=== PATIENT | female | born 1955 | race Caucasian/White ===

== ENCOUNTER 2017-06-18 10:28 | Emergency (ER) | payer OTHER ==
[~2017-06-18] VITALS: Ht 160 cm; Wt 77.0 kg
[2017-06-18 10:31] VITALS: BP 171/91; PULSE 125; TEMP 36.8; O2SAT 96; Ht 160 cm; Wt 77.0 kg
[2017-06-18] MEDS ORDERED: XYLOCAINE 1%/SOD BICARB 20 ML VIAL INFIL ONE (11:00)
[2017-06-18] MEDS ORDERED: DIPHTHERIA/TETANUS/PERTUSSIS 0.5 ML SYR/VIAL IM. ONE (11:30)
--- NOTE | 2017-06-18 11:34 | EMERGENCY ROOM VISIT NOTE ---
ED Visit Note First contact with patient: 10:40 CHIEF COMPLAINT: Left Hand laceration HISTORY OF PRESENT ILLNESS: This 62-year-old female presents the ER with chief complaint of a laceration to her left hand. 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 She states this mainly on the side of the thumb. The patient is able to move her thumb without difficulty. That she denies any numbness and tingling. The patient is not on any blood thinners. The patient's tetanus is not up-to-date. The patient is right-hand dominant. REVIEW OF SYSTEMS: 6 system review was performed and was negative unless stated otherwise in history of present illness. PMH: The patient is healthy; tonsillectomy, cataract surgery SOCIAL HISTORY: Patient admits to tobacco use but denies any alcohol use. PHYSICAL EXAM: Vital Signs: Were reviewed Reviewed Nurse's notes. GENERAL: 62- year-old white female appears in no acute distress. MENTAL Status: Alert and oriented 3. LEFT HAND: There is a 5 cm long laceration on the lateral aspect of the thumb and first metacarpal The edges are gaping widely apart. There is no foreign material in the wound and it looks clean. There is no active bleeding. No deep structures such as tendons or nerves are seen in the base of the wound. Extension and flexion of the fingers is full and strong. Sensation to pain and light touch is intact. EMERGENCY DEPARTMENT COURSE: The patient was evaluated. Adacel was given. Wound Repair: Was performed by the PA student under my direct supervision. Complexity: Basic. Verbal consent was obtained after the risks and benefits were explained, including but not limited to bleeding, scarring, infection, pain, and bone/joint /nerve damage. The skin was prepped with betadine and a sterile field set. The wound was anesthetized with 4.8 ml of 1% buffered lidocaine. With direct pressure the bleeding subsided. Copious irrigation was performed using sterile saline. The wound was explored for foreign bodies and none found. Debridement was not performed. The wound edges were approximated using 5-0 Ethilon with 9 simple interrupted sutures. Hemostasis and excellent approximation was achieved. Antibacterial ointment and a sterile dressing applied. Detailed wound care instructions and signs and symptoms of infection reviewed with the patient. No complications and the patient tolerated the procedure well. DIAGNOSIS: 5 cm left Hand laceration DISCHARGE INSTRUCTIONS & TREATMENT: Keep wound clean and dry. No water on the area for 12-24 hrs then no soaking until sutures removed. Do not allow any crusting or dried blood to accumulate on sutures. If this occurs, use a 1:1 solution of hydrogen peroxide/water on a Q-tip to clean the wound. Use an antibiotic ointment for 3-4 days, then let wound dry. Suture removal in 8-10 days. Follow up sooner for any signs of infection (increasing redness, swelling , drainage). Ice and elevate for swelling and pain. Tylenol 650 mg every 6 hrs for pain. Current/Historical Medications No Active Prescriptions or Reported Meds Allergies Coded Allergies: Aminoglycosides (Unverified Allergy, Unknown, RASH AND SWELLING, 06/18/17) Penicillins (Unverified Allergy, Unknown, RASHES AND SWELLING, 06/18/17) Vital Signs Date Time Temp Pulse Resp B/P (MAP) Pulse Ox O2 Delivery O2 Flow Rate FiO2 06/18/17 10:31 36.8 125 18 171/91 96 Room Air Medications Administered Medications (Trade) Dose Ordered Sig/Chintan Route Start Time Stop Time Status Last Admin Dose Admin Diphtheria/ Pertussis/Tetanus Vacc (Adacel Inj) 0.5 ml ONCE ONCE IM. 06/18/17 11:30 06/18/17 11:31 DC 06/18/17 11:29 0.5 ML Departure Information Prescriptions No Active Prescriptions or Reported Meds Referrals No Doctor, Assigned (PCP) Patient Instructions [facility]
== END 2017-06-18 11:41 | disposition home or self-care (01) ==
LOC: C.EDB 10:32 → C.EDD 11:41
DX: S61.412A Laceration without foreign body of left hand, initial encounter (principal); W26.0XXA Contact with knife, initial encounter; F17.200 Nicotine dependence, unspecified, uncomplicated; Z23 Encounter for immunization; Y99.0 Civilian activity done for income or pay

== ENCOUNTER 2017-09-28 12:46 | Emergency (ER) | payer SELFPAY ==
[~2017-09-28] VITALS: Ht 160 cm; Wt 64.2 kg
[2017-09-28 13:03] VITALS: TEMP 36.9; Ht 160 cm; Wt 64.2 kg
[2017-09-28] MEDS ORDERED: SODIUM CHLORIDE 0.9% 1000ML 1,000 ML IV STA (13:55)
[2017-09-28] MEDS ORDERED: ONDANSETRON INJ 2 MG/ML 2 ML VIAL IV STA (13:55)
[2017-09-28] MEDS ORDERED: KETOROLAC TROMETHAMINE 30 MG/ML VIAL IV STA ×2 (13:55→21:34)
[2017-09-28] MEDS ORDERED: CEFEPIME IV 2,000 MG in DEXTROSE 5% 100ML 100 ML IV STA (13:55)
--- NOTE | 2017-09-28 14:08 | EMERGENCY ROOM VISIT NOTE ---
History Report prepared by Ab: Jordy Jhaveri Under the Supervision of: Dr. oCleman Arzate M.D. First contact with patient: 13:40 Chief Complaint: ABDOMINAL PAIN Stated Complaint: ABD PAIN History of Present Illness The patient is a 62 year old female who presents to the Emergency Room with complaints of intermittent left lower quadrant abdominal pain for the past three months which has become constant the past few weeks. She rates her discomfort as a 7/10 in severity, and she states that the pain is worsened with deep breathing and movement. Per the nursing notes, the patient was seen at her PCP this morning, and her white blood cell count was 26, her blood sugar was 339 , and she has lost 20 pounds in the last three months. The patient has no history of diabetes. The patient states that she has been able to move her bowels recently, though she did have some unusual diarrhea this morning. She notes that she has had some fevers recently. She denies any urinary symptoms, and she states that the pain is not worse with eating, though she has a lack of appetite. The patient has no history of abdominal surgeries or diverticulitis. She notes that she currently feels bloated and full. The patient is a smoker, though she has been smoking less than usual. She states that she is not currently on any medications. Source of History: patient Onset: the past three months becoming constant the past few weeks Position: abdomen (LLQ) Symptom Intensity: 7/10 Timing: constant Modifying Factors (Worsening): movement, other (deep breathing) Associated Symptoms: + fevers, + diarrhea, No urinary symptoms Note: Associated symptoms: lack of appetite, and she feels bloated and full Review of Systems See HPI for pertinent positives & negatives. A total of 10 systems reviewed and were otherwise negative. Past Medical & Surgical Surgical Problems: (1) History of cataract surgery (2) History of tonsillectomy Social History Smoking Status: Current Every Day Smoker Marital Status: Occupation Status: employed Current/Historical Medications Scheduled Acetaminophen (Tylenol), 1,000 MG PO UD Allergies Coded Allergies: Aminoglycosides (Unverified Allergy, Unknown, RASH AND SWELLING, 09/28/17) Penicillins (Unverified Allergy, Unknown, RASHES AND SWELLING, 09/28/17) Ciprofloxacin (Unverified Adverse Reaction, Intermediate, UN KNOWN, ) Physical Exam Vital Signs Date Time Temp Pulse Resp B/P (MAP) Pulse Ox O2 Delivery O2 Flow Rate FiO2 09/28/17 23:35 92 16 140/64 99 Room Air 09/28/17 20:45 91 18 121/64 93 Room Air 09/28/17 18:30 93 18 128/75 96 Room Air 09/28/17 18:00 106 09/28/17 16:43 111 18 130/73 96 Room Air 09/28/17 14:48 92 Nasal Cannula 3.0 09/28/17 14:45 123 20 149/84 87 Room Air 09/28/17 14:09 130 09/28/17 13:03 36.9 122 20 128/84 95 Room Air Physical Exam GENERAL: Patient is in no acute distress. HEENT: No acute trauma, normocephalic atraumatic, mucous membranes moist, no nasal congestion, no scleral icterus. NECK: No stridor, no adenopathy, no meningismus, trachea is midline. LUNGS: Clear to auscultation bilaterally, no wheeze, no rhonchi, breath sounds equal. HEART: Tachycardic with a somewhat irregular rhythm. No murmurs. ABDOMEN: Soft, tender along the entire left side, bowel sounds positive, no hernias, no peritonitis. EXTREMITIES: No cyanosis or edema, full range of motion of all the joints without pain or difficulty, no signs for acute trauma. NEUROLOGIC: Oriented x 3, no acute motor or sensory deficits, no focal weakness. SKIN: Some mottling to her knees noted. No rash, no jaundice, no diaphoresis. Medical Decision & Procedures ER Provider Diagnostic Interpretation: Radiology results as stated below per my review and radiologist interpretation: CHEST ONE VIEW PORTABLE CLINICAL HISTORY: Abdominal pain. COMPARISON STUDY: Chest radiograph September 20, 2017. FINDINGS: No lucency is identified under the hemidiaphragms to suggest pneumoperitoneum. No pneumothorax or pleural effusion is noted. There is mild nonspecific interstitial prominence. Cardiomediastinal silhouette is unremarkable. No consolidation is present. IMPRESSION: 1. No definite acute cardiopulmonary findings. 2. Age indeterminate mild interstitial thickening. Electronically signed by: Johny Landeros M.D. 09/28/2017 2:35 PM Dictated Date/Time: 09/28/2017 2:[address] ABD/PELVIS IV AND ORAL CONT CLINICAL HISTORY: Left lower quadrant abdominal pain COMPARISON STUDY: None. TECHNIQUE: Following the IV administration of 95 mL of Optiray-320, CT scan of the abdomen and pelvis was performed from the lung bases to the proximal femurs. Images are reviewed in the axial, sagittal, and coronal planes. IV contrast was administered without complication. A dose lowering technique was utilized adhering to the principles of ALARA. CT DOSE: 644.08 mGycm FINDINGS: Lower chest: There is a small left pleural effusion. There is septal thickening raising the possibility of mild pulmonary vascular congestion/fluid overload. Liver: The contrast-enhanced liver is normal in size, contour, and attenuation. There is no intrahepatic biliary ductal dilatation. The hepatic veins and portal veins are patent. Gallbladder: Unremarkable. Spleen: There are clustered splenic hypodensities involving the superior medial aspect of the spleen. These measure 32 mm in aggregate. Pancreas: No intrinsic pancreatic masses are visualized, although the pancreatic tail abuts a complex cystic left perinephric process Adrenal glands: The left adrenal gland is thickened and abuts a left perinephric complex cystic process Kidneys: There is a 7 mm right renal hypodensity, likely representing a cyst. There is a markedly complex multicystic left perinephric process measuring 9 cm. There is thickening of the adjacent fascia. There is adjacent left para-aortic adenopathy. The lesion is contiguous with a splenic hypodensity. There is subdiaphragmatic fluid. While a multiloculated abscess is favored, an underlying malignancy cannot be excluded. Bowel: There are no transition zone to indicate bowel obstruction. There is no evidence of acute appendicitis. There is colonic diverticulosis. There are no acute peridiverticular inflammatory changes. Peritoneum: No free air is visualized. There is no significant free pelvic fluid. Vasculature: The abdominal aorta is normal in course and caliber. Adenopathy: There is left para-aortic lymphadenopathy. There are mildly enlarged lymph nodes in the gastrohepatic ligament. Pelvic viscera: An IUD is visualized. There are right ovarian calcifications in a normal-sized ovary. There is a septated left adnexal mass measuring 8 cm. There are septal calcifications. 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 Skeletal structures: No destructive osseous lesions are seen. IMPRESSION: 1. Complex multi septated cystic left perinephric process measuring approximately 9 cm. This abuts the pancreatic tail, and is contiguous with a splenic hypodensity. There is associated subdiaphragmatic fluid. There is thickening of the adjacent fascia. There is associated adenopathy within the gastrohepatic ligament and left para-aortic region. While a multiloculated abscess is favored, an underlying malignancy cannot be excluded. This lesion is not amenable to percutaneous drainage, but a percutaneous aspiration could be obtained to determine whether this represents an abscess. 2. 8 cm cystic left adnexal mass with septal calcification. 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 3. No evidence of bowel obstruction. No evidence of free air 4. Diverticulosis. No evidence of acute diverticulitis. No evidence of acute appendicitis. Electronically signed by: Bruce Garcia M.D. 09/28/2017 5:23 PM Dictated Date/Time: 09/28/2017 5:08 PM Laboratory Results 09/28/17 14:09 Red Blood Count 4.91, Mean Corpuscular Volume 76.2, Mean Corpuscular Hemoglobin 26.3, Mean Corpuscular Hemoglobin Concent 34.5, Mean Platelet Volume 11.6, Neutrophils (%) (Auto) 88.8, Lymphocytes (%) (Auto) 8.0, Monocytes (%) (Auto) 2.5, Eosinophils (%) (Auto) 0.0, Basophils (%) (Auto) 0.1, Neutrophils # (Auto) 20.61, Lymphocytes # (Auto) 1.86, Monocytes # (Auto) 0.58, Eosinophils # (Auto) 0.01, Basophils # (Auto) 0.02 09/28/17 14:09 Test 09/28/17 14:09 09/28/17 18:15 White Blood Count 23.21 K/uL (4.8-10.8) Red Blood Count 4.91 M/uL (4.2-5.4) Hemoglobin 12.9 g/dL (12.0-16.0) Hematocrit 37.4 % (37-47) Mean Corpuscular Volume 76.2 fL (80-100) Mean Corpuscular Hemoglobin 26.3 pg (25-34) Mean Corpuscular Hemoglobin Concent 34.5 g/dl (32-36) Platelet Count 411 K/uL (130-400) Mean Platelet Volume 11.6 fL (7.4-10.4) Neutrophils (%) (Auto) 88.8 % Lymphocytes (%) (Auto) 8.0 % Monocytes (%) (Auto) 2.5 % Eosinophils (%) (Auto) 0.0 % Basophils (%) (Auto) 0.1 % Neutrophils # (Auto) 20.61 K/uL (1.4-6.5) Lymphocytes # (Auto) 1.86 K/uL (1.2-3.4) Monocytes # (Auto) 0.58 K/uL (0.11-0.59) Eosinophils # (Auto) 0.01 K/uL (0-0.5) Basophils # (Auto) 0.02 K/uL (0-0.2) RDW Standard Deviation 45.0 fL (36.4-46.3) RDW Coefficient of Variation 16.5 % (11.5-14.5) Immature Granulocyte % (Auto) 0.6 % Immature Granulocyte # (Auto) 0.13 K/uL (0.00-0.02) Nucleated RBC Absolute Count (auto) 0.02 K/uL (0-0) Nucleated Red Blood Cells % 0.1 % Toxic Granulation 1+ Microcytosis PRESENT Prothrombin Time 11.4 SECONDS (9.0-12.0) Prothromb Time International Ratio 1.1 (0.9-1.1) Activated Partial Thromboplast Time 27.5 SECONDS (21.0-31.0) Partial Thromboplastin Ratio 1.1 Anion Gap 7.0 mmol/L (3-11) Est Creatinine Clear Calc Drug Dose 67.4 ml/min Estimated GFR () 93.6 Estimated GFR (Non- 80.8 BUN/Creatinine Ratio 27.0 (10-20) Lactic Acid Level 1.8 mmol/L (0.4-2.0) Calcium Level 9.4 mg/dl (8.5-10.1) Magnesium Level 2.0 mg/dl (1.8-2.4) Total Bilirubin 1.1 mg/dl (0.2-1) Aspartate Amino Transf (AST/SGOT) 18 U/L (15-37) Alanine Aminotransferase (ALT/SGPT) 18 U/L (12-78) Alkaline Phosphatase 605 U/L (45-117) Troponin I 0.042 ng/ml (0-0.045) Total Protein 7.7 gm/dl (6.4-8.2) Albumin 1.7 gm/dl (3.4-5.0) Globulin 6.0 gm/dl (2.5-4.0) Albumin/Globulin Ratio 0.3 (0.9-2) Lipase 291 U/L (73-393) Thyroid Stimulating Hormone (TSH) 0.740 uIu/ml (0.300-4.500) Free Thyroxine 1.72 ng/dl (0.80-1.60) Urine Color DK YELLOW Urine Appearance TURBID (CLEAR) Urine pH 5.0 (4.5-7.5) Urine Specific [place] > 1.045 (1.000-1.030) Urine Protein 1+ (NEG) Urine Glucose (UA) NEG (NEG) Urine Ketones NEG (NEG) Urine Occult Blood 2+ (NEG) Urine Nitrite POS (NEG) Urine Bilirubin NEG (NEG) Urine Urobilinogen NEG (NEG) Urine Leukocyte Esterase LARGE (NEG) Urine WBC (Auto) /hpf (0-5) Urine RBC (Auto) /hpf (0-4) Urine Hyaline Casts (Auto) /lpf (0-5) Urine Epithelial Cells (Auto) /lpf (0-5) Urine Bacteria (Auto) (NEG) Urine RBC 5-10 /hpf (0-4) Urine WBC >30 /hpf (0-5) Urine Epithelial Cells >30 /lpf (0-5) Urine Amorphous Sediment PRESENT (NONE PRSENT) Urine Bacteria 3+ (NEG) Urine Yeast (Auto) (NONE PRSENT) Date/Time Source Procedure Growth Status 09/28/17 18:15 Urine , Clean Catch Urine Culture - Final Staphylococcus Aureus Staphylococcus Aureus#2 Complete Laboratory results reviewed by me. Medications Administered Medications (Trade) Dose Ordered Sig/Chintan Route Start Time Stop Time Status Last Admin Dose Admin Ondansetron HCl (Zofran Inj) 4 mg NOW STAT IV 09/28/17 13:55 09/28/17 14:00 DC 09/28/17 14:43 4 MG Ketorolac Tromethamine (Toradol Inj) 30 mg NOW STAT IV 09/28/17 13:55 09/28/17 14:00 DC 09/28/17 14:44 30 MG Cefepime HCl 2000 mg/Dextrose 112.5 ml @ 200 mls/hr ONE STAT IV 09/28/17 13:55 09/28/17 14:28 DC 09/28/17 15:06 200 MLS/HR Sodium Chloride 1,000 ml @ 999 mls/hr Q1H1M STAT IV 09/28/17 13:55 09/28/17 14:55 DC 09/28/17 14:43 999 MLS/HR Sodium Chloride 500 ml @ 999 mls/hr Q31M STAT IV 09/28/17 16:03 09/28/17 16:33 DC 09/28/17 16:43 999 MLS/HR Ketorolac Tromethamine (Toradol Inj) 10 mg NOW STAT IV 09/28/17 21:34 09/28/17 21:35 DC 09/28/17 21:40 10 MG ECG Per My Interpretation Indication: abdominal pain Rate (beats per minute): 125 Rhythm: sinus tachycardia Findings: PAC, T-wave inversion (Anterior and lateral), other (No ST elevation) ED Course 1340: The patient was evaluated in room B9. A complete history and physical exam was performed. 1355: Sodium Chloride 1000 ml @ 999 mls/hr IV, Cefepime HCl 2000mg/Dextrose 112.5ml @ 200mls/hr IV, Toradol 30mg IV 1603: Sodium Chloride 500 ml @ 999 mls/hr IV 1739: I discussed the patient's case with Dr. Rahman, [facility] General Surgery , and she is going to look at the CT scan, and she is going to call back. 1804: Dr. Rahman called back, and she said that she thinks that it is mostly cancer and mostly MATHEMATICAL SCIENCES PROFESSOR related. I spoke with OB collision worker, she recommended transferred to a tertiary care facility. I spoke with [facility] in [place], I talked with the hospitalist and surgeon collision worker, transfer is being arranged. Medical Decision Differential diagnoses include: diverticulitis or colitis, sepsis, dehydration, electrolyte imbalance, anemia, renal or liver failure, pancreatitis, UTI, and malignancy. There is a significant leukocytosis at 23,000, this is consistent with infection. No anemia. Renal panel testing shows a mild hyponatremia, glucose was elevated at over 200. No kidney failure. Alk phos was elevated at over 600. No coagulopathy. The patient appeared to be in a euthyroid state. Chest film did not show pneumonia, free air or pneumothorax. Lactic acid level was not elevated making severe sepsis less likely. Blood cultures are pending. Urinalysis did suggest infection. Urine culture is pending. Abdominal and pelvis CT shows what appears to be an abscess or possible malignancy coming from the left kidney. There is also an abnormality thought potentially a malignancy in the left adnexa. No involvement of the bowel. The patient received IV saline, she received a second bolus of IV saline. She was given IV cefepime as antibiotic coverage. She received IV Toradol for pain , IV Zofran for nausea. The patient's heart rate has improved, her blood pressure is adequate. She is not hypotensive. He is quite tender on the left side of the abdomen and I do think this physical exam finding is explained by the findings on CT. I discussed the case with general surgery and MATHEMATICAL SCIENCES PROFESSOR, they both recommended transfer to a tertiary care facility. I spoke with the hospitalist at [facility] in [place] as well as the surgeon in [place]. The patient was accepted in transfer. No additional interventions were thought needed prior to transfer. Orders for transfer were written. I talked to the patient and her friends/family. She is aware of the findings. At this point, her care will be assumed by Dr. Ramirez, she is awaiting an ambulance for the transfer to [facility]. Medication Reconcilliation Current Medication List: was personally reviewed by me Blood Pressure Screening Patient's blood pressure: Elevated blood pressure Referred to hospitalist Consults Time Called: 1736 Consulting Physician: Dr. Rahman, [facility] General Surgery Returned Call: [phone], [phone] I discussed the patient's case with Dr. Rahman, [facility] General [facility], and she is going to look at the CT scan, and she is going to call back. Dr. Ramhan called back, and she said that she thinks that it is mostly cancer and mostly MATHEMATICAL SCIENCES PROFESSOR related. Impression Primary Impression: Intra-abdominal abscess Additional Impressions: Leukocytosis Tachycardia Malignancy Scribe Attestation The scribe's documentation has been prepared under my direction and personally reviewed by me in its entirety. I confirm that the note above accurately reflects all work, treatment, procedures, and medical decision making performed by me. Departure Information Dispostion Transfer Acute Care Facility Referrals [facility] (PCP) Patient Instructions My [facility] Problem Qualifiers
[2017-09-28] MEDS ORDERED: OPTIRAY 320 IV PRN (14:15)
[2017-09-28] MEDS ORDERED: ACET-1256 PO (14:26)
[2017-09-28 14:29] LABS: HEMATOCRIT 37.4 % (37-47); HEMOGLOBIN 12.9 g/dL (12.0-16.0); MEAN CELL VOLUME 76.2 fL (80-100); MEAN CORPUSCULAR HEMOGLOBIN 26.3 pg (25-34); MEAN CORPUSCULAR HGB CONC 34.5 g/dl (32-36); MEAN PLATELET VOLUME 11.6 fL (7.4-10.4); NUCLEATED RED BLOOD CELL ABS 0.02 K/uL (0-0); PLATELET COUNT 411 K/uL (130-400); RED CELL DISTRIBUTION WIDTH CV 16.5 % (11.5-14.5); WHITE BLOOD COUNT 23.21 K/uL (4.8-10.8)
[2017-09-28 14:36] LABS: INR 1.1 (0.9-1.1); PTT PATIENT 27.5 SECONDS (21.0-31.0)
--- NOTE | 2017-09-28 14:36 | DIAGNOSTIC IMAGING REPORT ---
CHEST ONE VIEW PORTABLE CLINICAL HISTORY: Abdominal pain. COMPARISON STUDY: Chest radiograph September 20, 2017. FINDINGS: No lucency is identified under the hemidiaphragms to suggest pneumoperitoneum. No pneumothorax or pleural effusion is noted. There is mild nonspecific interstitial prominence. Cardiomediastinal silhouette is unremarkable. No consolidation is present. IMPRESSION: 1. No definite acute cardiopulmonary findings. 2. Age indeterminate mild interstitial thickening. Electronically signed by: Johny Landeros M.D. 09/28/2017 2:35 PM Dictated Date/Time: 09/28/2017 2:34 PM
[2017-09-28 14:48] VITALS: O2SAT 92
[2017-09-28 14:48] LABS: ALBUMIN 1.7 gm/dl (3.4-5.0); BASO % 0.1 %; BASO ABS # 0.02 K/uL (0-0.2); CALCIUM 9.4 mg/dl (8.5-10.1); CREATININE 0.79 mg/dl (0.60-1.20); EOS ABS # 0.01 K/uL (0-0.5); IG# 0.13 K/uL (0.00-0.02); LYMPH ABS # 1.86 K/uL (1.2-3.4); MONO % 2.5 %; MONO ABS # 0.58 K/uL (0.11-0.59); NEUT % 88.8 %; NEUT ABS # 20.61 K/uL (1.4-6.5); POTASSIUM 4.3 mmol/L (3.5-5.1)
[2017-09-28 15:03] LABS: TOTAL PROTEIN 7.7 gm/dl (6.4-8.2)
[2017-09-28] MEDS ORDERED: SODIUM CHLORIDE 0.9% 500ML 500 ML IV STA (16:03)
--- NOTE | 2017-09-28 17:25 | DIAGNOSTIC IMAGING REPORT ---
CT ABD/PELVIS IV AND ORAL CONT CLINICAL HISTORY: Left lower quadrant abdominal pain COMPARISON STUDY: None. TECHNIQUE: Following the IV administration of 95 mL of Optiray-320, CT scan of the abdomen and pelvis was performed from the lung bases to the proximal femurs. Images are reviewed in the axial, sagittal, and coronal planes. IV contrast was administered without complication. A dose lowering technique was utilized adhering to the principles of ALARA. CT DOSE: 644.08 mGycm FINDINGS: Lower chest: There is a small left pleural effusion. There is septal thickening raising the possibility of mild pulmonary vascular congestion/fluid overload. Liver: The contrast-enhanced liver is normal in size, contour, and attenuation. There is no intrahepatic biliary ductal dilatation. The hepatic veins and portal veins are patent. Gallbladder: Unremarkable. Spleen: There are clustered splenic hypodensities involving the superior medial aspect of the spleen. These measure 32 mm in aggregate. Pancreas: No intrinsic pancreatic masses are visualized, although the pancreatic tail abuts a complex cystic left perinephric process Adrenal glands: The left adrenal gland is thickened and abuts a left perinephric complex cystic process Kidneys: There is a 7 mm right renal hypodensity, likely representing a cyst. There is a markedly complex multicystic left perinephric process measuring 9 cm. There is thickening of the adjacent fascia. There is adjacent left para-aortic adenopathy. The lesion is contiguous with a splenic hypodensity. There is subdiaphragmatic fluid. While a multiloculated abscess is favored, an underlying malignancy cannot be excluded. Bowel: There are no transition zone to indicate bowel obstruction. There is no evidence of acute appendicitis. There is colonic diverticulosis. There are no acute peridiverticular inflammatory changes. Peritoneum: No free air is visualized. There is no significant free pelvic fluid. Vasculature: The abdominal aorta is normal in course and caliber. Adenopathy: There is left para-aortic lymphadenopathy. There are mildly enlarged lymph nodes in the gastrohepatic ligament. Pelvic viscera: An IUD is visualized. There are right ovarian calcifications in a normal-sized ovary. There is a septated left adnexal mass measuring 8 cm. There are septal calcifications. 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 Skeletal structures: No destructive osseous lesions are seen. IMPRESSION: 1. Complex multi septated cystic left perinephric process measuring approximately 9 cm. This abuts the pancreatic tail, and is contiguous with a splenic hypodensity. There is associated subdiaphragmatic fluid. There is thickening of the adjacent fascia. There is associated adenopathy within the gastrohepatic ligament and left para-aortic region. While a multiloculated abscess is favored, an underlying malignancy cannot be excluded. This lesion is not amenable to percutaneous drainage, but a percutaneous aspiration could be obtained to determine whether this represents an abscess. 2. 8 cm cystic left adnexal mass with septal calcification. 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 3. No evidence of bowel obstruction. No evidence of free air 4. Diverticulosis. No evidence of acute diverticulitis. No evidence of acute appendicitis. Electronically signed by: Bruce Garcia M.D. 09/28/2017 5:23 PM Dictated Date/Time: 09/28/2017 5:08 PM
--- NOTE | 2017-09-28 21:29 | EMERGENCY ROOM VISIT NOTE ---
ED Visit Note This patient was signed out to me by Dr. Arzate pending transportation to [facility]. The case checker told me that the ambulance would not be here till 3 AM. The patient did receive antibiotics earlier. Patient requested that she be made a DNR. I did discuss this with her and she stated that should she have any event that leads to her heart stopping or requiring her intubated while in the emergency department here or during transport to [facility] she does not wish to be resuscitated. I did change disorder on the transfer sheet that Dr. Arzate had earlier filled out. I did give her 10 mg IV toradol for additional pain which relieved her symptoms. The patient was transported at 1240AM.
[2017-09-28 23:35] VITALS: BP 140/64; PULSE 92; O2SAT 99
--- NOTE | 2017-09-30 12:05 | Pharmacy Progress Note ---
ED Pharmacist Culture FollowUp Date of Service: Sep 30, 2017. Patient with MSSA growing in urine culture. Blood cultures were already reported and faxed to [facility] where the patient was transferred. I called and spoke to the patient's nurse Sara and informed her of the results. I also faxed the results to the confirmed number of [phone].
== END 2017-09-29 00:49 | disposition short-term general hospital (02) ==
LOC: C.EDB 12:47
DX: K65.1 Peritoneal abscess (principal); D72.829 Elevated white blood cell count, unspecified; R00.0 Tachycardia, unspecified; C57.4 Malignant neoplasm of uterine adnexa, unspecified; F17.210 Nicotine dependence, cigarettes, uncomplicated; Z98.49 Cataract extraction status, unspecified eye; Z88.0 Allergy status to penicillin; Z88.1 Allergy status to other antibiotic agents; Z88.8 Allergy status to other drugs, medicaments and biological substances; Z66 Do not resuscitate